=== PATIENT | female | born 1935 | race Caucasian/White ===

== ENCOUNTER → 2017-01-14 | Outpatient (CLI) | payer MEDICARE | LOC: US 14:12 | DX: R09.89 Other specified symptoms and signs involving the circulatory and respiratory systems (principal); I65.21 Occlusion and stenosis of right carotid artery | CPT/HCPCS: 93880 ==

== ENCOUNTER → 2017-01-29 | Outpatient (CLI) | payer MEDICARE | LOC: CT 08:14 | DX: R09.89 Other specified symptoms and signs involving the circulatory and respiratory systems (principal); R93.8 Abnormal findings on diagnostic imaging of other specified body structures ==